=== PATIENT | female | born 1995 | race Two or more races ===

== ENCOUNTER 2016-04-29 15:07 | Emergency (ER) | payer OTHER ==
[2016-04-29 15:17] VITALS: BP 101/62; PULSE 74; TEMP 98.2; BMI 18.1
== END 2016-04-29 15:55 | disposition left against medical advice (07) ==
LOC: JER 15:07
DX: Z53.21 Procedure and treatment not carried out due to patient leaving prior to being seen by health care provider (principal)
CPT/HCPCS: 99281-25

== ENCOUNTER 2017-06-27 07:30 | Inpatient (IN) | payer OTHER ==
[2017-06-27] MEDS ORDERED: PROMETHAZINE HCL 25 MG/1 ML VIAL IVPUSH ONE (07:53)
[2017-06-27] MEDS ORDERED: BUTORPHANOL TARTRATE 1 MG/ML VIAL IVPB ONE (07:53)
[2017-06-27] MEDS ORDERED: DINOPROSTONE 10 MG VAGINAL SUPPOSITORY VG ONE (08:06)
--- NOTE | 2017-06-27 08:14 | HP ---
Past Medical History - Primary Care Physician PCP:: Analilia Kulkarni - Admission Chief Complaint: 22 yrs , 39 weeks diagnosed gestational thrombovytopenia is admitted for induction of labor History of Present Illness: pnc at [address] [place] [address] . wt gain 31 lbs panel 12/23/16 ; O pos , Hbsag neg Hiv nr, Rpr nr, Rubella immune , Sickle neg,Pap NILM gc/ct neg 03/29/17 Quantiferon neg, 1 Hr Gtt 102 , Rpr nr, plt 166. 06/13/17 Gbs neg, gc/ct neg, Hiv neg Plt 85 06/15/17 Plt 89 h/h 12.2/35.4 06/20/17 Plt 76, ast 21, ALt 29 06/21/17 sono 36.5 weeks , Rita 12.5, efw 6'9" ( 36 %tile) ,BpP8/8, NST -2 cat-1 doppler flow at [facility] MCA wnl, recommends delivery 39 weeks 06/23/17 repeat BPP 8/8, Nst cat-1 Bpp 8/8, NST cat-1 , RITA 10.2 Plt 71, h/h 12.2/31.5 , AST 21, ALt 21 GGT 29, uric aci 6.2, u/a protein neg previously anatomy sono & growth sono wnl, Nt screen was not done , Quad screen neg 01/18/2017 16.1 wks ,EDC 07/04/17 02/06/17 20.1 weeks edc 07/04/17 normal anatomy History Source: Patient, Medical Record Limitations to Obtaining History: No Limitations - Past Medical History 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 No: Gastritis, GERD Hepatobiliary: No: Cholelithiasis, Hepatitis B Renal/: No: UTI ...: 1 ...Para: 0 ...LMP: 10/23/16 ...EDC by Dates: 07/30/17 (Mistaken dates ) ...EDC by Sono: 07/04/17 (39 weeks by sono .) Heme/Onc: Yes: Thrombocytopenia (gestational diagnised at 36 weeks). No: Anemia Infectious Disease: No: AIDS, HIV, STD's, Tuberculosis Psych: Yes: Other (no h/o mental disorders) Endocrine: No: Diabetes Mellitus, Hyperthyroidism, Hypothyroidism - Past Surgical History Past Surgical History: Yes: None Hx Myomectomy: No Hx Transabdominal Cerclage: No - Smoking History Smoking history: Never smoked Have you smoked in the past 12 months: No - Alcohol/Substance Use Hx Alcohol Use: No History of Substance Use: reports: None Home Medications - Allergies Allergies/Adverse Reactions: Allergies Allergy/AdvReac Type Severity Reaction Status Date / Time No Known Allergies Allergy Verified 06/27/17 09:19 - Home Medications Home Medications: Ambulatory Orders Vitamins (Sjr) - 1 tab PO DAILY 06/23/17 Physical Exam - Maternity Vital Signs: Selected Entries 06/27/17 08:00 Temperature 98.8 F Pulse Rate 55 L Respiratory 18 Rate Blood Pressure 110/71 Weight 130 lb Constitutional: Yes: Well Nourished, No Distress Eyes: Yes: WNL HENT: Yes: WNL Neck: Yes: WNL Cardiovascular: Yes: WNL Lungs: Clear to auscultation Breast(s): Yes: WNL. No: Mass - Abdominal Exam/OB Fundal Height: 38 Number of Fetuses: Single Presentation: Vertex Contractions: Yes Regularity: Irregular Intensity: Unaware Monitor Mode: External Heart Rate (range): 130 Heart Rate Location: [facility] Category: I Accelerations: Uniform Decelerations: None - Vaginal Exam/OB Vaginal Bleediing: No Speculum Exam: No Dilatation (cm): ft Effacement (%): 60 Amniotic Membrane Status: Intact Presentation: Vertex/Position (exam at 8.00 AM) Station: -2 - Physical Exam Musculoskeletal: Yes: WNL Extremities: Yes: WNL. No: Calf Tenderness Edema: Yes Edema: LLE: 1+, RLE: 1+ Integumentary: Yes: WNL Deep Tendon Reflex Grade: Normal +2 ...Motor Strength: WNL Psychiatric: Yes: WNL - Labs Lab Results: Laboratory Tests 06/27/17 06/27/17 06/27/17 09:05 09:05 09:05 WBC 7.6 Hgb 12.3 Hct 34.9 Plt Count 69 L Neutrophils % 64.6 Lymphocytes % 25.5 Monocytes % 7.2 Eosinophils % 2.1 Basophils % 0.6 Platelet Comment Rare giant plts PT with INR 9.50 L INR 0.84 L PTT (Actin FS) 28.9 Sodium Potassium Chloride Carbon Dioxide BUN Creatinine Random Glucose Uric Acid Calcium AST ALT Total Protein Urine Protein RPR Titer Blood Type O POSITIVE Antibody Screen Negative 06/27/17 06/27/17 06/27/17 09:05 09:05 10:15 WBC Hgb Hct Plt Count Neutrophils % Lymphocytes % Monocytes % Eosinophils % Basophils % Platelet Comment PT with INR INR PTT (Actin FS) Sodium 140 Potassium 4.0 Chloride 109 H Carbon Dioxide 23 BUN 8 Creatinine 0.6 Random Glucose 77 Uric Acid 5.7 Calcium 8.6 AST 18 ALT 16 Total Protein 6.4 Urine Protein Negative RPR Titer Nonreactive Blood Type Antibody Screen Hemorrhage Risk Assessment - Risk Factors High Risk Factors: Yes: Platelets less than 70,000 Risk Score: 2 Risk Level: High Risk Problem List - Problems (1) 39 weeks gestation of Code(s): Z3A.39 - 39 WEEKS GESTATION OF (2) Gestational thrombocytopenia Code(s): O99.119 - H DIS OF BLD/BLD-FORM ORG/IMMUN MECHNSM COMP PREG,UNSP TRI ; D69.6 - THROMBOCYTOPENIA, UNSPECIFIED Qualifiers: Trimester: third trimester Qualified Code(s): O99.113 - Other diseases of the blood and blood-forming organs and certain disorders involving the immune mechanism complicating , third trimester; D69.6 - Thrombocytopenia, unspecified; D69.6 - Thrombocytopenia, unspecified; D69.6 - Thrombocytopenia, unspecified (3) Elective induction of labor planned Code(s): [id number] - Assessment/Plan 22 yrs h/f 39 weeks iup, gestational thrmbocytopenia for induction of labor . Plan cervidil induction : cervidil inserted at 8.30 AM Trial of vaginal delivery stadol 2 mg+ phenrgan 25 mg iv prn for pain Plt 10 units on hold
[2017-06-27 08:58] VITALS: BMI 23.8
[2017-06-27 09:31] LABS: BASO % 0.6 % (0-2.0); EOS % 2.1 % (0-4.5); HEMATOCRIT 34.9 % (32.4-45.2); HEMOGLOBIN 12.3 GM/dL (10.7-15.3); LYMPH % 25.5 % (8-40); MCH 33.5 pg (25.7-33.7); MCHC 35.2 g/dl (32.0-36.0); MEAN CELL VOLUME 95.4 fl (80-96); MEAN PLT VOLUME 11.9 fl (7.5-11.1); MONO % 7.2 % (3.8-10.2); NEUT % 64.6 % (42.8-82.8); PLATELET COUNT 69 K/MM3 (134-434); RBC 3.66 M/mm3 (3.60-5.2); RDW 12.8 % (11.6-15.6); WHITE BLOOD COUNT 7.6 K/mm3 (4.0-10.0)
[2017-06-27 09:40] LABS: INR 0.84 (0.82-1.09); PROTHROMBIN TIME (PATIENT) 9.5 SEC (9.98-11.88)
[2017-06-27 09:43] LABS: ACTIVATED PTT 28.9 SECONDS (26.9-34.4)
[2017-06-27 10:00] LABS: ALBUMIN 2.7 g/dl (3.4-5.0); ALK PHOS 194 U/L (45-117); ANION GAP 8 (8-16); BLOOD UREA NITROGEN 8 mg/dL (7-18); CALCIUM 8.6 mg/dL (8.5-10.1); CHLORIDE 109 mmol/L (98-107); CO2 23 mmol/L (21-32); CREATININE 0.6 mg/dL (0.55-1.02); GLUCOSE,RANDOM 77 mg/dL (74-106); SGOT/AST 18 U/L (15-37); SGPT/ALT 16 U/L (12-78); SODIUM 140 mmol/L (136-145); TOT PROT 6.4 g/dl (6.4-8.2); URIC ACID 5.7 mg/dL (2.6-7.2)
[2017-06-27 10:03] LABS: BILIRUBIN,TOTAL < 0.1 mg/dL (0.2-1.0)
[2017-06-27 11:09] LABS: URINE APPEARANCE CLEAR; URINE BILIRUBIN NEGATIVE (<2.0 mg/dL); URINE COLOR STRAW; URINE GLUCOSE (UA) NEGATIVE (NEGATIVE); URINE KETONE NEGATIVE (NEGATIVE); URINE LEUK ESTERASE NEGATIVE (NEGATIVE); URINE NITRITE NEGATIVE (NEGATIVE); URINE PROTEIN NEGATIVE (NEGATIVE); URINE UROBILINOGEN NEGATIVE mg/dL (0.2-1.0)
[2017-06-27] MEDS ORDERED: SODIUM PHOSPHATE/NA BIPHOS 133 ML ENEMA PR ONE (20:00)
[2017-06-27] MEDS ORDERED: OXYTOCIN 30 UNITS in 0.9% NS 30 UNIT/500 ML INFUS.BAG IVPB SCH (22:00)
[2017-06-27] MEDS: DEXTROSE 5%-LACTATED RINGERS 1,000 ML IV SCH (23:40)
[2017-06-28] MEDS ORDERED: PROMETHAZINE HCL 25 MG/1 ML VIAL ONE ×3 (06:31→17:37)
[2017-06-28] MEDS ORDERED: BUTORPHANOL TARTRATE 1 MG/ML VIAL ONE ×4 (06:31→17:36)
--- NOTE | 2017-06-28 06:39 | PN ---
Progress Note (short form) - Note Progress Note: 22 yrs , s/p 12 hrs of cervidl. Cervidil removed at 8.30 PM 06/27/17 Pitocin Induction since 12.00 midnight , currently 7ml/hr UC q 2-4 min irregular mod to strong FHR 120 cat-1 pt very uncomfortable , & anxious Pelvic : 1 cm/70 %, vx -2/-1 station, pelvis adequate Selected Entries 06/28/17 06:00 Temperature 97.9 F Pulse Rate 49 L Blood Pressure 114/66 IMP : 39 .1 weeks,gestational thrombocytopenia induction in progress, latent phase labor on pitocin ' Plan Stadol + phenrgan for labor analgesia given at 6.[address] Pitocin, Ct trial of labor Laboratory Tests 06/28/17 07:40 WBC 10.3 H D RBC 3.53 L Hgb 11.8 Hct 33.8 Plt Count 69 L Neutrophils % 77.3 Lymphocytes % 15.1 D , repeat cbc today stable plt count Problem List - Problems (1) 39 weeks gestation of Code(s): Z3A.39 - 39 WEEKS GESTATION OF (2) Gestational thrombocytopenia Code(s): O99.119 - OTH DIS OF BLD/BLD-FORM ORG/IMMUN MECHNSM COMP PREG,UNSP TRI ; D69.6 - THROMBOCYTOPENIA, UNSPECIFIED Qualifiers: Trimester: third trimester Qualified Code(s): O99.113 - Other diseases of the blood and blood-forming organs and certain disorders involving the immune mechanism complicating , third trimester; D69.6 - Thrombocytopenia, unspecified; D69.6 - Thrombocytopenia, unspecified; D69.6 - Thrombocytopenia, unspecified (3) Elective induction of labor planned Code(s): [id number] -
[2017-06-28 08:13] LABS: BASO % 0.6 % (0-2.0); EOS % 0.9 % (0-4.5); HEMATOCRIT 33.8 % (32.4-45.2); HEMOGLOBIN 11.8 GM/dL (10.7-15.3); LYMPH % 15.1 % (8-40); MCH 33.5 pg (25.7-33.7); MEAN CELL VOLUME 95.6 fl (80-96); MEAN PLT VOLUME 12.4 fl (7.5-11.1); MONO % 6.1 % (3.8-10.2); NEUT % 77.3 % (42.8-82.8); PLATELET COUNT 69 K/MM3 (134-434); RBC 3.53 M/mm3 (3.60-5.2); RDW 12.9 % (11.6-15.6); WHITE BLOOD COUNT 10.3 K/mm3 (4.0-10.0)
[2017-06-28] MEDS: DEXTROSE 5%-LACTATED RINGERS 1,000 ML IV SCH ×2 (09:00→18:00)
--- NOTE | 2017-06-28 11:28 | PN ---
Progress Note (short form) - Note Progress Note: 10.30 AM : pelvic 1-2 cm/80 %/vx /-2/-1 station FHR 125/130 cat-1 , UC 1-3-4 min , Pitocin 9 ml/hr Selected Entries 06/28/17 10:00 Temperature 98.2 F Pulse Rate 69 Blood Pressure 128/[address] trial of labor 14.20 hr 2 cm/90%/Vx/-1/OH /Pitocin FHR 125-135 cat-1 . UC 2-3 min irregular, dysfuctional .Pitocin 9ml/hr Selected Entries 06/28/17 13:00 Pulse Rate 61 Blood Pressure 126/84 Blood Pressure [address] trial of labor 15.55 hr stadol 1 mg + phenrgan 25 mg IV stat given 16.35 hr SROM clear 16.45 hr cx : 2-3 cm/90 % edematous cx /vx -1 to 0 statiion /mr fhr 130-140 , one time variable cat-2/ uc 2-5 min/pit 9 ml/ hr Selected Entries 06/28/17 15:55 Temperature 98.2 F Pulse Rate 71 Blood Pressure 145/78 17.40hr Stadol 1mg + phenrgan 25 mg Iv stat 19.10 hr 4cm/90%/vx 0 /mr fhr 130 , cat-1, , when pt sits ,fhr is seen deceling down to 80 bpm unable to determine if it is true decel or not uc q 2 min . Pit 10 ml/hr Selected Entries 06/28/17 06/28/17 18:00 18:56 Temperature 98.2 F Pulse Rate 72 87 Blood Pressure 146/79 Blood Pressure 99 Mean 20.30 :7-8 cm/90%/vx /+1 caput /mr fhr 135, cat-1, UC 2-3 , pit 11 ml/hr 21.30 hr 9cm/100%//vx+2 caput fhr 140 cat-1 , UC 2-3 min , Pit 11/ml/hr Selected Entries 06/28/17 21:00 Pulse Rate 69 Blood Pressure 136/85 4/12/18 : 00.00 hr fully dilated . pt pushing Selected Entries 06/28/17 22:00 Temperature 98.7 F Pulse Rate 80 Blood Pressure 130/85 Problem List - Problems (1) 39 weeks gestation of Code(s): Z3A.39 - 39 WEEKS GESTATION OF (2) Gestational thrombocytopenia Code(s): O99.119 - OTH DIS OF BLD/BLD-FORM ORG/IMMUN MECHNSM COMP PREG,UNSP TRI ; D69.6 - THROMBOCYTOPENIA, UNSPECIFIED Qualifiers: Trimester: third trimester Qualified Code(s): O99.113 - Other diseases of the blood and blood-forming organs and certain disorders involving the immune mechanism complicating , third trimester; D69.6 - Thrombocytopenia, unspecified; D69.6 - Thrombocytopenia, unspecified; D69.6 - Thrombocytopenia, unspecified (3) Elective induction of labor planned Code(s): [id number] -
[2017-06-28] MEDS ORDERED: PROMETHAZINE HCL 25 MG/1 ML VIAL IVPB ONE ×2 (15:34→17:50)
[2017-06-28] MEDS ORDERED: BUTORPHANOL TARTRATE 1 MG/ML VIAL IVPUSH ONE (15:45)
[2017-06-28] MEDS ORDERED: BUTORPHANOL TARTRATE 1 MG/ML VIAL IVPB ONE (17:50)
[2017-06-29] MEDS ORDERED: OXYTOCIN 20 UNITS in 0.9% NS 20 UNIT/1,000 ML INFUS.BAG IV ONE ×2 (01:42→03:44)
[2017-06-29 01:58] LABS: VENOUS PC02 46.2 mmHg (38-52); VENOUS PH 7.28 (7.32-7.42); VENOUS PO2 22.9 mmHg (28-48)
[2017-06-29] MEDS ORDERED: BENZOCAINE 28 GM HEMORRHOIDAL OINTMENT TP PRN (02:21)
[2017-06-29] MEDS ORDERED: METHYLERGONOVINE MALEATE 0.2 MG/1 ML AMP IM PRN (02:21)
[2017-06-29] MEDS ORDERED: BISACODYL 10 MG SUPP.RECT RC PRN (02:21)
[2017-06-29] MEDS ORDERED: WITCH HAZEL 50% (TUCKS) 40 PAD/JAR PAD TP PRN (02:21)
[2017-06-29] MEDS ORDERED: BENZOCAINE 20% 57 GM BOTTLE TP PRN (02:21)
[2017-06-29] MEDS ORDERED: IBUPROFEN 600 MG TABLET (FP) PO PRN (02:21)
[2017-06-29] MEDS ORDERED: OXYTOCIN 20 UNITS in 0.9% NS 20 UNIT/1,000 ML INFUS.BAG IV SCH (02:30)
--- NOTE | 2017-06-29 02:38 | PN ---
Delivery - Delivery Vaginal Delivery: No Problems, Spontaneous (baby was delievered vx presentation , [place] position, immediate oral & nasal suction was done .shoulder delievered without problem .) Type of Anesthesia: Local Episiotomy/Laceration: Midline (episiotomy was sutured in layers with chr catgut #2/0 under local anesthesia .. 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 Cervidil induction started on 06/27/17 Pitocin Induction on 06/28/17 Intrapartum for labor analgesia stadol & phenrgan was given repeated 3 times . Intrapartum protracted active phase of labor was noted After full Dilatation , at 00.15 Hr platelet transfusion 1 bag (10 units ) were given . after delivery of placenta 20 IU pitocin & prpphylactic IM Methergine 0.2 mg was given . v/s stable
[2017-06-29] MEDS ORDERED: FERROUS SO4 325 MG TABLET (FP) PO SCH (08:00)
[2017-06-29] MEDS: oxyCODONE HCL 5 MG TABLET PO PRN ×2 (09:11→20:38)
[2017-06-29] MEDS: ACETAMINOPHEN 325 MG TABLET (FP) PO PRN ×2 (09:12→20:39)
[2017-06-29] MEDS ORDERED: PRENATAL VITAMINS W/ FOLIC ACID TABLET (FP) PO SCH (10:00)
[2017-06-30 05:38] LABS: BASO % 0.3 % (0-2.0); EOS % 1.3 % (0-4.5); HEMATOCRIT 27.7 % (32.4-45.2); HEMOGLOBIN 9.2 GM/dL (10.7-15.3); LYMPH % 14.8 % (8-40); MCH 32.3 pg (25.7-33.7); MCHC 33.4 g/dl (32.0-36.0); MEAN CELL VOLUME 96.8 fl (80-96); MONO % 5.9 % (3.8-10.2); NEUT % 77.7 % (42.8-82.8); PLATELET COUNT 75 K/MM3 (134-434); RBC 2.86 M/mm3 (3.60-5.2); WHITE BLOOD COUNT 15.1 K/mm3 (4.0-10.0)
[2017-06-30 05:42] LABS: ALBUMIN 1.9 g/dl (3.4-5.0); ALK PHOS 134 U/L (45-117); ANION GAP 8 (8-16); BLOOD UREA NITROGEN 11 mg/dL (7-18); CALCIUM 8.2 mg/dL (8.5-10.1); CHLORIDE 110 mmol/L (98-107); CO2 24 mmol/L (21-32); CREATININE 0.7 mg/dL (0.55-1.02); GLUCOSE,RANDOM 90 mg/dL (74-106); POTASSIUM 3.9 mmol/L (3.5-5.1); SGOT/AST 38 U/L (15-37); SGPT/ALT 20 U/L (12-78); SODIUM 142 mmol/L (136-145); TOT PROT 4.8 g/dl (6.4-8.2)
[2017-06-30 05:49] LABS: BILIRUBIN,TOTAL < 0.1 mg/dL (0.2-1.0)
--- NOTE | 2017-06-30 07:45 | PN ---
Progress Note (short form) - Note Progress Note: s/p vaginal delivery, has c/o of dizziness and chest pain early this mornning, has no chest pain, no dizziness ,no dyspnia, no excess vaginal bleeding CBC, BMP 06/30/17 05:10 06/30/17 05:10 Last Vital Signs Temp Pulse Resp BP Pulse Ox 98.9 F 62 20 129/81 06/29/17 21:00 06/30/17 04:25 06/30/17 04:25 06/30/17 04:25 uterus firm, non tender . lochia mild no calf tenderness impression ITP, platletes improved , no active vaginal bleeding chest pain, dizziness resolved , possible postural hypotension plan medical evaluation, EKG
--- NOTE | 2017-06-30 08:54 | CONSULT ---
Consultation: REQUESTING PROVIDER: Dr. Patiño CONSULT REQUEST: We have been asked to medically evaluate this patient for chest pain. HISTORY OF PRESENT ILLNESS: Patient is a 22 year old female with no significant past medical history. Family history obtained. Patient is who was diagnosed with gestational thrombocytopenia and was induced. Patient reported chest pain that began at 0400 today, chest pain is described as chest pressure 8/9 that worsens when she takes in a deep breath and does not radiate. Some dizziness with ambulation reported. Chest pressure reproducible on palpation of the chest. She is noted to have petechia on her face, both eyelids and anterior chest. She denies any calf pain, no active vaginal bleeding, no dizziness when laying in the bed, no gum bleeding. PAST MEDICAL HISTORY: none reported PAST SURGICAL HISTORY: n/a Social History: Smoking: none Alcohol: denies Drugs: denies Family History: Mother: in her 40s, history of anemia Father: late 50s, hx of stroke Brother 1, no medical issues Sister 1, no medical issues REVIEW OF SYSTEMS: CONSTITUTIONAL: Absent: fever, chills, diaphoresis, generalized weakness, malaise, loss of appetite, weight change HEENT: Absent: rhinorrhea, nasal congestion, throat pain, throat swelling, difficulty swallowing, mouth swelling, ear pain, eye pain, visual changes CARDIOVASCULAR: Absent: syncope, palpitations, irregular heart rate, peripheral edema RESPIRATORY: Absent: cough, wheezing, stridor, hemoptysis GASTROINTESTINAL: Absent: abdominal pain, abdominal distension, nausea, vomiting, diarrhea, constipation, melena, hematochezia GENITOURINARY: Absent: dysuria, frequency, urgency, hesitancy, hematuria, flank pain, genital pain MUSCULOSKELETAL: Absent: myalgia, arthralgia, joint swelling, back pain, neck pain SKIN: Absent: pallor HEMATOLOGIC/IMMUNOLOGIC: Absent: frequent infections ENDOCRINE: Absent: unexplained weight gain, unexplained weight loss, heat intolerance, cold intolerance NEUROLOGIC: Absent: headache, focal weakness or paresthesias, unsteady gait, seizure, mental status changes, bladder or bowel incontinence PSYCHIATRIC: Absent: anxiety, depression, suicidal or homicidal ideation, hallucinations. PHYSICAL EXAMINATION Vital Signs - 24 hr 06/29/17 06/29/17 06/29/17 09:06 09:58 13:26 Temperature 99.1 F 98.2 F 98.1 F Pulse Rate 62 60 73 Respiratory 20 16 20 Rate Blood Pressure 126/56 118/68 113/64 06/29/17 06/29/17 06/30/17 17:32 21:00 04:08 Temperature 98.1 F 98.9 F Pulse Rate 73 74 62 Respiratory 20 20 22 Rate Blood Pressure 122/71 134/69 124/81 06/30/17 04:25 Temperature Pulse Rate 62 Respiratory 20 Rate Blood Pressure 129/81 GENERAL: Awake, alert, and fully oriented, in no acute distress. HEAD: Normal with no signs of trauma, petechia that covers her entire face, both eyelids are reddened, no visual defect, red eye sclera reddended EYES: Pupils equal, round and reactive to light, extraocular movements intact, sclera anicteric, conjunctiva clear. No lid lag. EARS, NOSE, THROAT: Ears normal, nares patent, oropharynx clear without exudates. Moist mucous membranes. NECK: Normal range of motion, supple without lymphadenopathy, JVD, or masses. LUNGS: Breath sounds equal, clear to auscultation bilaterally. No wheezes, and no crackles. No accessory muscle use. HEART: Regular rate and rhythm, EKG shows SB @ 51 ABDOMEN: Soft, nontender, not distended, normoactive bowel sounds MUSCULOSKELETAL: Normal range of motion at all joints. No bony deformities or tenderness. No CVA tenderness. UPPER EXTREMITIES: No peripheral edema. LOWER EXTREMITIES: No peripheral edema. NEUROLOGICAL: Normal speech. Normal gait. PSYCHIATRIC: Cooperative. Good eye contact. Appropriate mood and affect. SKIN: petechie rash covers entire face, and anterior part of her chest. Laboratory Results - last 24 hr 06/30/17 06/30/17 05:10 05:10 WBC 15.1 H D RBC 2.86 L Hgb 9.2 L D Hct 27.7 L D MCV 96.8 H MCH 32.3 MCHC 33.4 RDW 13.0 Plt Count 75 L MPV 12.0 H Neutrophils % 77.7 Lymphocytes % 14.8 Monocytes % 5.9 Eosinophils % 1.3 Basophils % 0.3 Sodium 142 Potassium 3.9 Chloride 110 H Carbon Dioxide 24 Anion Gap 8 BUN 11 Creatinine 0.7 Creat Clearance w eGFR > 60 Random Glucose 90 Calcium 8.2 L Total Bilirubin < 0.1 L AST 38 H ALT 20 Alkaline Phosphatase 134 H Total Protein 4.8 L Albumin 1.9 L ASSESSMENT/PLAN: Patient is a 22 year old female with no significant past medical history. Family history obtained. Patient is who was diagnosed with gestational thrombocytopenia and was induced. Patient reported chest pain that began at 0400 today, chest pain is described as chest pressure 8/9 that worsens when she takes in a deep breath and does not radiate. Some dizziness with ambulation reported. Chest pressure reproducible on palpation of the chest. She is noted to have petechia on her face, both eyelids and anterior chest. She denies any calf pain, no active vaginal bleeding, no dizziness when laying in the bed. She has been infused platelets on this admission. Card: Chest pain, acute Dyspnea with exertion EKG shows SB 51 HR Chest pain reproducible on palpation of midsternal chest Trend trops Repeat EKG if symptoms persist Monitor vitals, labs Orthostatics q8 Fall precautions Bleeding precautions Chest xray to eval shortness of breath, although not wheezing Cardiology consult considered Pulm: Shortness of breath Lungs clear to auscultation, no wheezing Stable oxygen levels on 2 liters Chest xray ordered Wean off oxygen as tolerated Incentive spirometer Heme: Leukocytosis, likely reactive Will trend, no signs of infection otherwise UA/UC/BC ordered Thrombocytopenia in (gestational), platelets 69>75 Bleeding risk, monitor for signs of bleed Would monitor her BP q 4 hours Monitor platelets for recovery CBC q4 x 3 today F.E.N. Fluids: tolerating PO Electrolytes: monitor bmp Nutrition: regular diet Prophy: DVT: TEDs, anticoag contraindicated GI: deferred Dispo: We will continue to follow the patient. Thank you for this consultative opportunity. Visit type - Emergency Visit Emergency Visit: Yes ED Registration Date: 06/27/17 Care time: The patient presented to the Emergency Department on the above date and was hospitalized for further evaluation of their emergent condition. - New Patient This patient is new to me today: Yes Date on this admission: 06/30/17 - Critical Care Critical Care patient: No
--- NOTE | 2017-06-30 09:18 | EKG ---
Test Reason : Blood Pressure : / mmHG Vent. Rate : 051 BPM Atrial Rate : 051 BPM P-R Int : 134 ms QRS Dur : 090 ms QT Int : 406 ms P-R-T Axes : 036 063 048 degrees QTc Int : 374 ms SINUS BRADYCARDIA OTHERWISE NORMAL ECG NO PREVIOUS ECGS AVAILABLE Confirmed by HECTOR MARTINEZ MD ([id number]) on 06/30/2017 9:18:40 AM Referred By: Confirmed By:HECTOR MARTINEZ MD
[2017-06-30] MEDS ORDERED: WITCH HAZEL 50% (TUCKS) 40 PAD/JAR PAD TP PRN (10:41)
[2017-06-30] MEDS ORDERED: METHYLERGONOVINE MALEATE 0.2 MG/1 ML AMP IM PRN (10:41)
[2017-06-30] MEDS ORDERED: BENZOCAINE 28 GM HEMORRHOIDAL OINTMENT TP PRN (10:41)
[2017-06-30] MEDS ORDERED: BISACODYL 10 MG SUPP.RECT RC PRN (10:41)
[2017-06-30] MEDS ORDERED: BENZOCAINE 20% 57 GM BOTTLE TP PRN (10:41)
[2017-06-30 11:43] LABS: URINE APPEARANCE CLEAR; URINE BILIRUBIN NEGATIVE (<2.0 mg/dL); URINE COLOR COLORLESS; URINE GLUCOSE (UA) NEGATIVE (NEGATIVE); URINE KETONE NEGATIVE (NEGATIVE); URINE LEUK ESTERASE TRACE (NEGATIVE); URINE NITRITE NEGATIVE (NEGATIVE); URINE PROTEIN NEGATIVE (NEGATIVE); URINE UROBILINOGEN NEGATIVE mg/dL (0.2-1.0)
[2017-06-30 11:56] LABS: EPI CELLS RARE /HPF (FEW)
[2017-06-30] MEDS: TETRAHYDROZOLINE HCL EYE DROPS OU SCH ×4 (12:25→21:22)
[2017-06-30 12:33] LABS: BASO % 0.2 % (0-2.0); EOS % 0.8 % (0-4.5); HEMATOCRIT 26.2 % (32.4-45.2); LYMPH % 13.2 % (8-40); MCH 32.9 pg (25.7-33.7); MCHC 34.3 g/dl (32.0-36.0); MEAN PLT VOLUME 11.3 fl (7.5-11.1); MONO % 5.1 % (3.8-10.2); NEUT % 80.7 % (42.8-82.8); PLATELET COUNT 85 K/MM3 (134-434); RBC 2.73 M/mm3 (3.60-5.2); WHITE BLOOD COUNT 17.3 K/mm3 (4.0-10.0)
[2017-06-30] MEDS: ACETAMINOPHEN 325 MG TABLET (FP) PO PRN ×2 (13:30→23:12)
[2017-06-30] MEDS: FERROUS SO4 325 MG TABLET (FP) PO SCH (17:04)
[2017-06-30 18:00] LABS: BASO % 0.4 % (0-2.0); EOS % 0.9 % (0-4.5); HEMATOCRIT 26.7 % (32.4-45.2); HEMOGLOBIN 9.3 GM/dL (10.7-15.3); LYMPH % 15.5 % (8-40); MCH 33.6 pg (25.7-33.7); MCHC 34.9 g/dl (32.0-36.0); MEAN CELL VOLUME 96.2 fl (80-96); MEAN PLT VOLUME 11.9 fl (7.5-11.1); MONO % 5.6 % (3.8-10.2); NEUT % 77.6 % (42.8-82.8); PLATELET COUNT 106 K/MM3 (134-434); RBC 2.78 M/mm3 (3.60-5.2); RDW 13.2 % (11.6-15.6); WHITE BLOOD COUNT 18.5 K/mm3 (4.0-10.0)
[2017-06-30] MEDS ORDERED: SENNOSIDES/DOCUSATE COMBO (SENNA PLUS) TABLET (UD) PO PRN (22:00)
--- NOTE | 2017-07-01 08:02 | DS ---
Physical Exam-PERSONAL LINES APPRAISER Vital Signs: Vital Signs Temperature 98.2 F 06/30/17 22:00 Pulse Rate 63 06/30/17 22:00 Respiratory Rate 20 06/30/17 22:00 Blood Pressure 107/58 06/30/17 22:00 O2 Sat by Pulse Oximetry (%) 100 06/30/17 09:00 Constitutional: Yes: Well Nourished Eyes: Yes: Other (Conjuctiva red) HENT: Yes: Atraumatic Neck: Yes: Supple Cardiovascular: Yes: Regular Rate and Rhythm Respiratory: Yes: Regular Gastrointestinal: Yes: Normal Bowel Sounds External Genitalia: Yes: Normal Vaginal Exam: Yes: Normal Cervix: Yes: Normal Uterus: Yes: Firm ....Post : Yes: Uterus firm, Moderate lochia serosa Breast(s): Yes: WNL Musculoskeletal: Yes: WNL Extremities: Yes: WNL Neurological: Yes: Alert, Oriented ...Motor Strength: WNL Psychiatric: Yes: Alert, Oriented Labs: CBC, BMP 06/30/17 05:10 Delivery - Delivery Vaginal Delivery: No Problems, Spontaneous (baby was delievered vx presentation , [place] position, immediate oral & nasal suction was done .shoulder delievered without problem .) Type of Anesthesia: Local Episiotomy/Laceration: Midline (episiotomy was sutured in layers with chr catgut #2/0 under local anesthesia .. 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 Present: Yes Name: Barry Torres Infant Gender: Male Weight: 6 lb 14 oz Position: Left, OA Total Hours ROM (Hrs/Mins): 9hrs.07min - 1 Minute Total Score: 9 5 Minutes Total Score: 9 - Feeding Plan Initial Plan: Elected not to breastfeed exclusively throughout hospitalization Discharge Summary Reason For Visit: INDUCTION Current Active Problems 39 weeks gestation of (Acute) Elective induction of labor planned (Acute) Gestational thrombocytopenia (Acute) Normal spontaneous vaginal delivery (Acute) Procedures: Principal: Normal vaginal delivery Hospital Course: Patient is status post normal vaginal delivery; she was consulted by [facility] due to gestational thrombocytopenia. Condition: Stable - Instructions Diet, Activity, Other Instructions: Post Instructions DIET: Continue good diet high in protein, calcium, and iron rich foods. Drink at least eight (8) glasses of water daily in addition to other fluids. ___ Regular diet MEDICATIONS: Continue vitamins and iron as previously directed. Motrin and Tylenol may be taken for minor discomfort. ACTIVITY: Mild to moderate exercise may be started in two (2) weeks. Take frequent rest periods. Resume normal activity after six (6) week check up. WOUND CARE OF OPERATIVE SITE: Continue use of perineal bottle until vaginal discharge stops. Keep area clean. Shower daily. Keep abdominal wound dry. Report any drainage or redness to physician. Tub baths, tampons and douches are not permitted for [address] Breast feeding & or Bottle feeding BREAST CARE: (For those that are not breast feeding): If engorgement occurs: Wear tight fitting bra. Take Tylenol or Motrin for pain. Apply cold packs (ice in bags to each breast ) FAMILY PLANNING: There are many control alternatives to pursue and they should be discussed at your first office visit. You may resume sexual activity after your six (6) week check up. (Remember, breast feeding is not a contraceptive) NEXT PHYSICIAN APPOINTMENT: Be certain to call for a six (6) week appointment, unless otherwise directed. Call Clinic or got to Emergency Dept if you have any of the following: Heavy vaginal bleeding Painful urination Leg pain Unusual odor noted to vaginal bleeding High fever Red streaking noted on breast Referrals: Analilia Kulkarni MD [Staff Physician] - Disposition: HOME - Home Medications Comprehensive Discharge Medication List: Ambulatory Orders Vitamins (Sjr) - 1 tab PO DAILY 06/23/17 Acetaminophen [Tylenol .Regular Strength -] 650 mg PO Q3H PRN tablet 06/29/17 Benzocaine [Americaine 20% [place] -] 1 spray TP PRN PRN bottle 06/29/17 Ferrous Sulfate [Feosol] 325 mg PO DAILY@0800 #30 tab 06/29/17 Ibuprofen [Motrin -] 200 mg PO Q4H PRN tablet 06/29/17 Vitamins (Sjr) - 1 tab PO DAILY #30 tablet 06/29/17 Witch Karlee 50% (Tucks) [Tucks Pads -] 1 pad TP PRN PRN pad 06/29/17
[2017-07-01 08:10] LABS: BASO % 0.3 % (0-2.0); EOS % 2.2 % (0-4.5); HEMATOCRIT 26.7 % (32.4-45.2); HEMOGLOBIN 9.2 GM/dL (10.7-15.3); LYMPH % 17.4 % (8-40); MCH 33.2 pg (25.7-33.7); MCHC 34.4 g/dl (32.0-36.0); MEAN CELL VOLUME 96.5 fl (80-96); MEAN PLT VOLUME 10.6 fl (7.5-11.1); MONO % 4.4 % (3.8-10.2); NEUT % 75.7 % (42.8-82.8); PLATELET COUNT 97 K/MM3 (134-434); RBC 2.76 M/mm3 (3.60-5.2); WHITE BLOOD COUNT 15.4 K/mm3 (4.0-10.0)
[2017-07-01] MEDS: FERROUS SO4 325 MG TABLET (FP) PO SCH (08:41)
[2017-07-01] MEDS: TETRAHYDROZOLINE HCL EYE DROPS OU SCH (09:26)
[2017-07-01 09:46] VITALS: BP 109/66; PULSE 54; TEMP 97.8
[2017-07-01] MEDS ORDERED: PRENATAL VITAMINS W/ FOLIC ACID TABLET (FP) PO SCH (10:00)
--- NOTE | 2017-07-01 11:51 | PN ---
Progress Note (short form) - Note Progress Note: Subjective: The patient was seen and examined at the bedside, she has no complaints of chest pain at this time. Current Medications Generic Name Dose Route Start Last Admin Trade Name Freq PRN Reason Stop Dose Admin Acetaminophen 650 mg 06/30/17 10:41 06/30/17 23:12 Tylenol - PO 650 mg Q3H PRN Administration PAIN LEVEL 4 - 6 Benzocaine 1 spray 06/30/17 10:41 [place]aine 20% [place] - TP PRN PRN PAIN Benzocaine 1 applic 06/30/17 10:41 Americaine Ointment - TP PRN PRN PAIN Bisacodyl 10 mg 06/30/17 10:41 Dulcolax Suppository - RC PRN PRN CONSTIPATION Ferrous Sulfate 325 mg 06/30/17 17:30 07/01/17 08:41 Feosol - PO 325 mg BIDWM ALIVIA Administration Methylergonovine Maleate 0.2 mg 06/30/17 10:41 Methergine Injection - IM Q4H PRN EXCESSIVE BLEEDING (L&D) Multivit/Folic Acid/Iron 1 tab 07/01/17 10:00 07/01/17 09:25 Vitamins (Sjr) - PO 1 tab DAILY ALIVIA Administration Senna/Docusate Sodium 2 tablet 07/01/17 22:00 Pericolace - PO HS PRN CONSTIPATION Tetrahydrozoline HCl 1 drop 06/30/17 10:00 07/01/17 09:26 Visine - OU 1 drop QID ALIVIA Administration Witch [place]lee/Glycerin 1 pad 06/30/17 10:41 Tucks Pads - TP PRN PRN PAIN Objective: Vital Signs Period Temp Pulse Resp BP Sys/Chiang Pulse Ox Last 24 Hr 97.8 F-99.1 F 54-81 20-20 91-111/39-66 Physical Exam: General: NAD, A&Ox3 HEENT: Facial petechia. Reddened sclera No reproducible chest pain on exam CBCD WBC 15.4 K/mm3 (4.0-10.0) H 07/01/17 07:22 RBC 2.76 M/mm3 (3.60-5.2) L 07/01/17 07:22 Hgb 9.2 GM/dL (10.7-15.3) L 07/01/17 07:22 Hct 26.7 % (32.4-45.2) L 07/01/17 07:22 MCV 96.5 fl (80-96) H 07/01/17 07:22 MCHC 34.4 g/dl (32.0-36.0) 07/01/17 07:22 RDW 13.0 % (11.6-15.6) 07/01/17 07:22 Plt Count 97 K/MM3 (134-434) L 07/01/17 07:22 MPV 10.6 fl (7.5-11.1) D 07/01/17 07:22 CMP Sodium 142 mmol/L (136-145) 06/30/17 05:10 Potassium 3.9 mmol/L (3.5-5.1) 06/30/17 05:10 Chloride 110 mmol/L (98-107) H 06/30/17 05:10 Carbon Dioxide 24 mmol/L (21-32) 06/30/17 05:10 Anion Gap 8 (8-16) 06/30/17 05:10 BUN 11 mg/dL (7-18) 06/30/17 05:10 Creatinine 0.7 mg/dL (0.55-1.02) 06/30/17 05:10 Creat Clearance w eGFR > 60 (>60) 06/30/17 05:10 Random Glucose 90 mg/dL (74-106) 06/30/17 05:10 Calcium 8.2 mg/dL (8.5-10.1) L 06/30/17 05:10 Total Bilirubin < 0.1 mg/dL (0.2-1.0) L 06/30/17 05:10 AST 38 U/L (15-37) H 06/30/17 05:10 ALT 20 U/L (12-78) 06/30/17 05:10 Alkaline Phosphatase 134 U/L (45-117) H 06/30/17 05:10 Total Protein 4.8 g/dl (6.4-8.2) L 06/30/17 05:10 Albumin 1.9 g/dl (3.4-5.0) L 06/30/17 05:10 CARDIAC ENZYMES Creatine Kinase 167 IU/L (26-192) 07/01/17 09:13 Troponin I < 0.02 ng/ml (0.00-0.05) 07/01/17 09:13 Assessment: This is a 22 year old female with gestational thrombocytopenia who is post- day 2 of vaginal delivery Plan: 1) Chest pain - Resolved - Trop x3 negative - EKG sinus bradycardia 2) Thrombocytopenia - Recommend hematology consult - Discussed bleeding precautions with the patient 3) Post day 2 - Plan per obstetrics Thank you for this consultative opportunity Visit type - Emergency Visit Emergency Visit: Yes ED Registration Date: 06/27/17 Care time: The patient presented to the Emergency Department on the above date and was hospitalized for further evaluation of their emergent condition. - New Patient This patient is new to me today: Yes Date on this admission: 07/01/17 - Critical Care Critical Care patient: No
[2017-07-01] MEDS ORDERED: SENNOSIDES/DOCUSATE COMBO (SENNA PLUS) TABLET (UD) PO PRN (22:00)
--- NOTE | 2017-07-04 15:35 | PATH ---
Surgical Pathology Report Patient Name: RACHNA GIRARD Med. Rec. #: [id number] /Age/Gender: 1995 (Age: 22) / F Account: [id number] Location: [facility] OBS/DOSIMETRIST Taken: 06/29/2017 Received: 06/30/2017 Reported: 07/04/2017 Physicians: Analilia Kulkarni M.D. Specimen(s) Received PLACENTA Clinical History Vaginal delivery, thrombocytopenia-platelets transfused Final Diagnosis PLACENTA, DELIVERY: SMALL (360 GRAM) FOCALLY DISRUPTED THIRD TRIMESTER PLACENTA WITH CIRCUMMARGINATE INSERTION OF MEMBRANES AND THREE-VESSEL UMBILICAL CORD. Electronically Signed Faisal Baxter M.D. Gross Description The specimen is received fresh labeled placenta and is a 360 gram, 16 x 16 x 2.5 cm. placenta with attached membranes and umbilical cord. The attached membranes are glistening and translucent and insert in a circummarginate matter cross approximately half the placental disc, up to 1 cm from the nearest placental margin. The umbilical cord measures 23 cm. in length and averages 1 cm. in diameter. The cord inserts eccentrically, 6 cm. to the nearest margin. No true knots or strictures are identified. Cut surface of the umbilical cord reveals 3 vessels. The surface is leavitt-blue with minimal fibrin deposition and appropriate caliber vessels. The maternal surface is red-brown with focal defects. Sectioning reveals red-brown, spongy parenchyma. No lesions are identified. Orthodontist Assistant sections are submitted in three cassettes as follows: 1- membrane rolls and umbilical cord; 2-3- full thickness sections of placenta. [facility]/06/30/2017 [facility]/06/30/2017
== END 2017-07-01 13:35 | disposition home or self-care (01) | DRG 560 ==
LOC: JLDR 07:30 → UNDODISIN 06-28 17:20 → J3W 06-29 04:19
PROVIDERS: ADMIT Obstetrics & Gynecology; ATTEND Obstetrics & Gynecology
PROC: 3E0P7VZ Introduction of Hormone into Female Reproductive, Via Natural or Artificial Opening (ICD-10-PCS; 2017-06-27)
PROC: 30233R1 Transfusion of Nonautologous Platelets into Peripheral Vein, Percutaneous Approach (ICD-10-PCS; 2017-06-28)
PROC: 0W8NXZZ Division of Female Perineum, External Approach (ICD-10-PCS; principal; 2017-06-29)
PROC: 10E0XZZ Delivery of Products of Conception, External Approach (ICD-10-PCS; 2017-06-29)
DX: O99.113 Other diseases of the blood and blood-forming organs and certain disorders involving the immune mechanism complicating pregnancy, third trimester (principal); Z3A.39 39 weeks gestation of pregnancy; O26.893 Other specified pregnancy related conditions, third trimester; D72.829 Elevated white blood cell count, unspecified; R07.9 Chest pain, unspecified; D69.6 Thrombocytopenia, unspecified; Z37.0 Single live birth
CPT/HCPCS: 36415; 36430; 59409; 71045-TC-FY; 80053; 81003; 81015; 82550; 82553; 82803; 84484; 84550; 85025; 85610; 85730; 86593; 86850; 86900; 86901; 87040; 87086; 88307-TC; 93005; 93010; 94010; P9034

== ENCOUNTER 2017-07-04 06:08 | Emergency (ER) | payer OTHER ==
[2017-07-04 06:15] VITALS: BMI 26.5
--- NOTE | 2017-07-04 06:17 | PDOC ---
Attending Attestation - Resident Resident Name: Balwinder Novoa - ED Attending Attestation I have performed the following: I have examined & evaluated the patient, The case was reviewed & discussed with the resident, I agree w/resident's findings & plan, Exceptions are as noted - HPI HPI: 07/04/17 06:16 Ms William Brownlee presents to the ER with a complaint of shortness of breath and chest pain She is a , gestational period complicated by gestational thrombocytopenia requiring induction of labor She is now post day #5 s/p vaginal delivery Pt presents to day with a complaint of chest pain Pt actually reported chest pain on post day #2 She was seen by the Hospitalist service. Troponins negative x 2 Pt states her symptoms resolved She notes that her chest pain returned today Associated with shortness of breath No fevers or chills She denies any calf pain, no heavy vaginal bleeding, no dizziness when laying in the bed, no gum bleeding. 07/04/17 06:19 07/04/17 06:20 - Physicial Exam PE: 07/04/17 06:25 GENERAL: The patient is in no acute distress. HEAD: Normal EYES: PERRLA, EOMI, sclera anicteric, conjunctiva clear. ENT: Ears normal, nares patent, oropharynx clear without exudates. Moist mucous membranes. NECK: Normal range of motion, supple without lymphadenopathy, JVD, or masses. LUNGS: Breath sounds equal, clear to auscultation bilaterally. No wheezes, and no crackles. HEART:Regular rate and rhythm, normal S1 and S2 without murmur, rub or gallop. ABDOMEN: Soft, nontender, normoactive bowel sounds. No guarding, no rebound. No masses palpable. EXTREMITIES: Normal range of motion, no edema. No clubbing or cyanosis. No erythema, or tenderness. NEUROLOGICAL: Cranial nerves II through XII grossly intact. Normal speech. No focal neurological deficits. MUSCULOSKELETAL: Back non-tender to palpation, no CVA tenderness SKIN: Warm, Dry, normal turgor, no rashes or lesions noted. - Medical Decision Making 07/07/17 20:54 This is a 22-year-old female, presenting to the emergency department with chest pain, intermittent shortness of breath which is been present since IMMEDIATELY after delivery. Differential diagnosis is broad and includes: Cardiomyopathy, pulmonary embolism, musculoskeletal pain Labs CT ordered EKG Reassess Pt signed out to Marce Osuna Clinical impression: chest pain, initial presentation
--- NOTE | 2017-07-04 06:27 | PDOC ---
History of Present Illness - General Chief Complaint: Shortness of Breath Stated Complaint: DIFFICULTY BREATHING,PAIN RT ARM Time Seen by Provider: 07/04/17 06:13 History Source: Patient Exam Limitations: No Limitations - History of Present Illness Initial Comments: 07/04/17 06:23 The patient is a 22F with no PMH delivered on 06/29 who presents to the ER with chest pain and SOB. The patient states that after she delivered her baby she began to develop SOB which resolved until 1500 yesterday. Since then she's had intermittent SOB, with pleuritic CP every time she takes a deep breath. She also admits to chest pressure which is retrosternal, intermittent, and nonradiating. The patient denies any fever, chills, nausea, vomiting, vaginal bleeding. Past History - Past Medical History Allergies/Adverse Reactions: Allergies Allergy/AdvReac Type Severity Reaction Status Date / Time No Known Allergies Allergy Verified 07/04/17 06:13 Home Medications: Ambulatory Orders NK [No Known Home Medication] 07/04/17 Asthma: No Cancer: No Cardiac Disorders: No Diabetes: No HTN: No Seizures: No Thyroid Disease: No - Suicide/Smoking/Psychosocial Hx Smoking History: Never smoked Have you smoked in the past 12 months: No Information on smoking cessation initiated: No Hx Alcohol Use: No Drug/Substance Use Hx: No Substance Use Type: None Hx Substance Use Treatment: No Review of Systems - Review of Systems Able to Perform ROS?: Yes Comments:: 07/04/17 06:25 GENERAL/CONSTITUTIONAL: No fever or chills. No weakness. HEAD, EYES, EARS, NOSE AND THROAT: No change in vision. No ear pain or discharge. No sore throat. CARDIOVASCULAR: Positive for chest pressure. No chest pain, palpitations, or lightheadedness. RESPIRATORY: Positive for shortness of breath. No cough, wheezing, or hemoptysis. GASTROINTESTINAL: No nausea, vomiting, diarrhea, constipation, or abdominal pain. GENITOURINARY: No dysuria, frequency, hematuria, or change in urination. MUSCULOSKELETAL: No joint or muscle swelling or pain. No neck or back pain. SKIN: No rash or lesions. NEUROLOGIC: No headache, numbness, tingling, weakness, loss of consciousness, or change in strength/sensation. ENDOCRINE: No increased thirst. No abnormal weight change. HEMATOLOGIC/LYMPHATIC: No anemia, easy bleeding, or history of blood clots. ALLERGIC/IMMUNOLOGIC: No hives or skin allergy. Is the patient limited Sinhala proficient: No *Physical Exam - Vital Signs Last Vital Signs Temp Pulse Resp BP Pulse Ox 98.6 F 72 18 106/70 98 07/04/17 06:13 07/04/17 06:13 07/04/17 06:13 07/04/17 06:13 07/04/17 06:13 - Physical Exam Comments: 07/04/17 06:25 GENERAL: Well developed, well nourished. Awake and alert. No acute distress. HEENT: Normocephalic, atraumatic. Hearing grossly normal. Moist mucous membranes. PERRLA, EOMI. No conjunctival pallor. Sclera are non-icteric. NECK: Supple. Full ROM. No JVD. CARDIOVASCULAR: Regular rate and rhythm. No murmurs, rubs, or gallops. Tenderness to palpation over sternum. PULMONARY: No evidence of respiratory distress. Lungs clear to auscultation bilaterally. No wheezing, rales or rhonchi. ABDOMINAL: Soft. Non-tender. Non-distended. No rebound or guarding. GENITOURINARY: No CVA tenderness bilaterally. MUSCULOSKELETAL: Normal range of motion at all joints. No bony deformities or tenderness. EXTREMITIES: No cyanosis. No clubbing. No edema. No calf tenderness. SKIN: Warm and dry. Normal capillary refill. No rashes. No jaundice. NEUROLOGICAL: Alert, awake, appropriate. Cranial nerves 2-12 intact. Normal speech. Gait is normal without ataxia. PSYCHIATRIC: Cooperative. Good eye contact. Appropriate mood and affect. ED Treatment Course - LABORATORY CBC & Chemistry Diagram: 07/04/17 06:30 07/04/17 06:30 - RADIOLOGY Radiology Studies Ordered: Category Date Time Status CHEST CTA [CT] Stat CT Scan 07/04/17 06:21 Ordered Medical Decision Making - Medical Decision Making 07/04/17 06:26 The patient is a 22F with no PMH delivered 5 days ago who presents with pleuritic CP. She was worked up in our hospital with 2 negative troponins but with her recent delivery and worsening pleuritic CP, I am concerned for a PE. Will r/o with CTA chest. D/t her hx of thrombocytopenia, will send basic labs and reassess. Pending EKG, labs, and imaging. 07/04/17 07:03 Pt signed out to darshan Todd team. *DC/Admit/Observation/Transfer Diagnosis at time of Disposition: Chest pain - Discharge Dispostion Disposition: HOME Condition at time of disposition: Good - Referrals Referrals: Jason Prasad MD [Staff Physician] - Nadine Lake MD [Primary Care Provider] - - Patient Instructions Printed Discharge Instructions: DI for Atypical Chest Pain Additional Instructions: You were evaluated today for chest pain. All of your labs and imaging showed no concerning findings including a radiological scan of your lungs which showed no blood clot. A referral to a binding nicker has been provided in your discharge instructions. Please make a follow-up appointment in the next 48 hours. Please pump and dispose of your milk for 24 hours before resuming breast feeding. Return to the Emergency Department for any new/worsening/concerning symptoms. - Post Discharge Activity
--- NOTE | 2017-07-04 07:06 | PDOC ---
*Physical Exam - Vital Signs Last Vital Signs Temp Pulse Resp BP Pulse Ox 98.6 F 72 18 106/70 98 07/04/17 06:13 07/04/17 06:13 07/04/17 06:13 07/04/17 06:13 07/04/17 06:13 - Physical Exam General Appearance: Yes: Nourished, Appropriately Dressed HEENT: positive: Other (B/L scleral icterus) Neck: positive: Trachea midline, Supple Respiratory/Chest: positive: Lungs Clear Cardiovascular: positive: S1, S2. negative: Edema, JVD Gastrointestinal/Abdominal: positive: Normal Bowel Sounds, Soft Extremity: positive: Normal Capillary Refill, Normal Inspection Integumentary: positive: Normal Color, Dry, Warm Neurologic: positive: Fully Oriented, Alert ED Treatment Course - LABORATORY CBC & Chemistry Diagram: 07/04/17 06:30 07/04/17 06:30 Medical Decision Making - Medical Decision Making 07/04/17 07:03 Patient signed out by Dr. Novoa (Resident) and Dr. Oreilly (Attending) 22 year old female with PMH of thrombocytopenia, 5 days pospartum delivery presents with VILLARREAL and chest. Patient currently saturating 99% on RA, other VS unremarkable - chest pain resolved. Awaiting labs, Trop/BNP, CT -- clinical concern for PE. 07/04/17 07:11 ECG shows HR 60, NSR, no deviations, normal intervals, no HUMBERTO/STD, no TWI - non ischemic EKG 07/04/17 07:32 Platelets 179 (97 on 07/01); Leukocytosis 13.3 -- likely 2/2 elevation; patient @ CT. 07/04/17 09:06 Patient resting comfortably, no current c/o dyspnea or chest pain. CT pending 07/04/17 10:07 SpO2 96% on RA following 2 minutes of ambulation. Patient notes childhood h/o dyspnea on exertion for which she saw either a pulmnologist or reo asset manager, patient can't recall specific specialty or any specific diagnosis. Patient counseled on importance of outpatient cardiology follow-up. 07/04/17 10:17 Case d/w Dr. Sylvester -- agrees with POC, notes patient has detailed h/o anxiety associated with motherhood. 07/04/17 11:34 At this time patient has been observed for 4 hours with resolution of chest pain , negative Troponin and CTA. Chest pain unlikely related to ACS or PE. Will discharge home with return precautions and referral to cardiology as well as instruction to pump for 24 hours before resuming breast feeding. I discussed the physical exam findings, ancillary test results and final diagnoses with the patient. I answered all of the patient's questions. The patient was satisfied with the care received and felt comfortable with the discharge plan and treatment plan. The patient will return to the Emergency Department with any new, persistent or worsening symptoms. *DC/Admit/Observation/Transfer Diagnosis at time of Disposition: Chest pain - Discharge Dispostion Disposition: HOME Condition at time of disposition: Good Admit: No - Referrals Referrals: Nadine Lake MD [Primary Care Provider] - Jason Prasad MD [Staff Physician] - - Patient Instructions Printed Discharge Instructions: DI for Atypical Chest Pain Additional Instructions: You were evaluated today for chest pain. All of your labs and imaging showed no concerning findings including a radiological scan of your lungs which showed no blood clot. A referral to a reo asset manager has been provided in your discharge instructions. Please make a follow-up appointment in the next 48 hours. Please pump and dispose of your milk for 24 hours before resuming breast feeding. Return to the Emergency Department for any new/worsening/concerning symptoms. - Post Discharge Activity
[2017-07-04 07:10] LABS: BASO % 0.2 % (0-2.0); HEMATOCRIT 25.4 % (32.4-45.2); HEMOGLOBIN 8.9 GM/dL (10.7-15.3); LYMPH % 11.9 % (8-40); MCH 33.5 pg (25.7-33.7); MCHC 34.9 g/dl (32.0-36.0); MEAN PLT VOLUME 9.5 fl (7.5-11.1); MONO % 6.2 % (3.8-10.2); NEUT % 79.7 % (42.8-82.8); PLATELET COUNT 179 K/MM3 (134-434); RBC 2.64 M/mm3 (3.60-5.2); RDW 13.1 % (11.6-15.6); WHITE BLOOD COUNT 13.3 K/mm3 (4.0-10.0)
[2017-07-04 07:34] LABS: INR 0.84 (0.82-1.09); PROTHROMBIN TIME (PATIENT) 9.5 SEC (9.98-11.88)
[2017-07-04 07:36] LABS: ACTIVATED PTT 25.7 SECONDS (26.9-34.4)
[2017-07-04 07:50] LABS: ALBUMIN 2.6 g/dl (3.4-5.0); ALK PHOS 151 U/L (45-117); ANION GAP 6 (8-16); BLOOD UREA NITROGEN 10 mg/dL (7-18); CALCIUM 8.4 mg/dL (8.5-10.1); CHLORIDE 107 mmol/L (98-107); CO2 26 mmol/L (21-32); CREATININE 0.5 mg/dL (0.55-1.02); GLUCOSE,RANDOM 79 mg/dL (74-106); POTASSIUM 3.8 mmol/L (3.5-5.1); SGOT/AST 50 U/L (15-37); SGPT/ALT 45 U/L (12-78); SODIUM 139 mmol/L (136-145); TOT PROT 6.1 g/dl (6.4-8.2)
[2017-07-04 08:03] LABS: BILIRUBIN,TOTAL < 0.1 mg/dL (0.2-1.0)
[2017-07-04 08:19] LABS: N-TERMINAL BNP 50.32 pg/ml (5-125)
--- NOTE | 2017-07-04 10:03 | PDOC ---
*Physical Exam - Vital Signs Last Vital Signs Temp Pulse Resp BP Pulse Ox 98.6 F 72 18 187/104 98 07/04/17 06:13 07/04/17 06:13 07/04/17 06:13 07/04/17 08:45 07/04/17 06:13 - Physical Exam Comments: 07/04/17 10:01 VSS well appearing feels well on trial of ambulation, O2 sat remained normal ED Treatment Course - LABORATORY CBC & Chemistry Diagram: 07/04/17 06:30 07/04/17 06:30 - ADDITIONAL ORDERS Additional order review: Laboratory Results 07/04/17 07/04/17 06:30 06:30 PT with INR 9.50 L INR 0.84 L PTT (Actin FS) 25.7 L Sodium 139 Potassium 3.8 Chloride 107 Carbon Dioxide 26 Anion Gap 6 L BUN 10 Creatinine 0.5 L Creat Clearance w eGFR > 60 Random Glucose 79 Calcium 8.4 L Total Bilirubin < 0.1 L AST 50 H ALT 45 Alkaline Phosphatase 151 H Creatine Kinase 441 H Creatine Kinase Index 1.1 CK-MB (CK-2) 5.061 H Troponin I < 0.02 B-Natriuretic Peptide 50.32 Total Protein 6.1 L Albumin 2.6 L 07/04/17 06:30 RBC 2.64 L MCV 96.0 MCHC 34.9 RDW 13.1 MPV 9.5 D Neutrophils % 79.7 Lymphocytes % 11.9 D Monocytes % 6.2 Eosinophils % 2.0 Basophils % 0.2 Medical Decision Making - Medical Decision Making 07/04/17 10:01 Received signout on this healthy 22-year-old female at 39 weeks gestation who presented with atypical cardiopulmonary symptoms. She was seen during her labor and delivery stay and troponins were negative 3, she presents with persistent symptoms. EKG and troponin are negative here, though CK-MB is slightly elevated. Otherwise well-appearing. Plan at sign out to check CTA chest to rule out PE. CT is negative for PE and notably with normal heart size and no pericardial effusion. Patient remains clinically well-appearing, discussed return precautions, will give cardiology referral. Discussed case with GIS PROGRAMMER, who agree with plan. *DC/Admit/Observation/Transfer - Referrals Referrals: Nadine Lake MD [Primary Care Provider] - - Patient Instructions - Post Discharge Activity
[2017-07-04 10:40] VITALS: BP 123/71; PULSE 71; TEMP 98.3
--- NOTE | 2017-07-04 16:49 | EKG ---
Test Reason : Blood Pressure : / mmHG Vent. Rate : 060 BPM Atrial Rate : 060 BPM P-R Int : 150 ms QRS Dur : 094 ms QT Int : 406 ms P-R-T Axes : 058 070 049 degrees QTc Int : 406 ms NORMAL SINUS RHYTHM WITH SINUS ARRHYTHMIA NORMAL ECG WHEN COMPARED WITH ECG OF 30-JUN-2017 08:19, NO SIGNIFICANT CHANGE WAS FOUND Confirmed by MD Myai, Zane ([id number]) on 07/04/2017 4:49:03 PM Referred By: Confirmed By:Zane See MD
== END 2017-07-04 10:31 | disposition home or self-care (01) ==
LOC: JER 06:08
DX: O90.89 Other complications of the puerperium, not elsewhere classified (principal); R07.89 Other chest pain
CPT/HCPCS: 36415; 71275-TC; 80053; 82550; 82553; 83880; 84484; 85025; 85610; 85730; 93005; 93010; 99284-25

== ENCOUNTER 2019-12-29 22:50 | Inpatient (IN) | payer OTHER ==
[2019-12-29] MEDS ORDERED: ELECTROLYTE-148 SOLN 1,000 ML IV ONE (23:15)
--- OUTSIDE RECORDS SUMMARY | 2019-12-29 23:26 | XMS ---
:[address] [facility] Support Name Relationship Address Phone I SMILE Unavailable [address] [place] [address] PRIYANKA PATEL [address] [place] [address]PRIYANKA ODOM Unavailable [address] [phone] [place] [address] Re-disclosure Warning The records that you are about to access may contain information from federally- assisted alcohol or drug abuse programs. If such information is present, then the following federally mandated warning applies: This information has been disclosed to you from records protected by federal confidentiality rules (42 CFR part 2). The federal rules prohibit you from making any further disclosure of this information unless further disclosure is expressly permitted by the written consent of the person to whom it pertains or as otherwise permitted by 42 CFR part 2. A general authorization for the release of medical or other information is NOT sufficient for this purpose. The Federal rules restrict any use of the information to criminally investigate or prosecute any alcohol or drug abuse patient.The records that you are about to access may contain highly sensitive health information, the redisclosure of which is protected by Article 27-F of the [place] State Public Health law. If you continue you may haveaccess to information: Regarding HIV / AIDS; Provided by facilities licensed or operated by the [facility] Office of Mental Health; or Provided by the [facility] Office for People With Developmental Disabilities. If such information is present, then the following [facility] mandated warning applies: This information has been disclosed to you from confidential records which are protected by state law. State law prohibits you from making any further disclosure of this information without the specific written consent of the person to whom it pertains, or as otherwise permitted by law. Any unauthorized further disclosure in violation of state law may result in a fine or snf sentence or both. A general authorization for the release of medical or other information is NOT sufficient authorization for further disclosure. Insurance Providers Payer name Policy type Policy ID Covered Covered alliance party's Policy P namrata / Coverage alliance party ID relationship to [place] Inf ormation type [place] COUNTS INCLUDE 234 BEDS AT THE [facility] [id number] [address] [place] [address] NON CAP
[2019-12-29] MEDS ORDERED: OXYTOCIN 20 UNITS in 0.9% NS 20 UNIT/1,000 ML INFUS.BAG IV ONE (23:33)
[2019-12-29] MEDS ORDERED: IBUPROFEN 600 MG TABLET (FP) PO ONE (23:57)
[2019-12-29] MEDS ORDERED: ACETAMINOPHEN 325 MG TABLET (FP) ONE (23:58)
[2019-12-30] LABS: BASO % 0.5 % (0-2.0); EOS % 0.5 % (0-4.5); HEMATOCRIT 37.5 % (32.4-45.2); HEMOGLOBIN 12.8 GM/dL (10.7-15.3); LYMPH % 31.2 % (8-40); MCH 32.6 pg (25.7-33.7); MCHC 34.3 g/dl (32.0-36.0); MEAN CELL VOLUME 95.2 fl (80-96); MONO % 5.3 % (3.8-10.2); NEUT % 62.5 % (42.8-82.8); PLATELET COUNT 72 K/MM3 (134-434); RBC 3.93 M/mm3 (3.60-5.2); RDW 13.4 % (11.6-15.6); WHITE BLOOD COUNT 11.7 K/mm3 (4.0-10.0)
[2019-12-30 00:03] LABS: INR 0.85 (0.83-1.09); PROTHROMBIN TIME (PATIENT) 10.1 SEC (9.7-13.0)
[2019-12-30 00:06] LABS: ACTIVATED PTT 27.9 SECONDS (25.2-36.5)
[2019-12-30] MEDS ORDERED: BISACODYL 10 MG SUPP.RECT RC PRN (00:18)
[2019-12-30] MEDS ORDERED: BENZOCAINE 20% 57 GM BOTTLE TP PRN (00:18)
[2019-12-30] MEDS ORDERED: WITCH HAZEL 50% (TUCKS) 40 PAD/JAR PAD TP PRN (00:18)
[2019-12-30] MEDS ORDERED: BENZOCAINE 28 GM HEMORRHOIDAL OINTMENT TP PRN (00:18)
[2019-12-30] MEDS ORDERED: METHYLERGONOVINE MALEATE 0.2 MG/1 ML AMP IM PRN (00:18)
[2019-12-30 00:23] LABS: BLOOD UREA NITROGEN 10.1 mg/dL (7-18); CALCIUM 9.2 mg/dL (8.5-10.1); CREATININE 0.7 mg/dL (0.55-1.3)
--- NOTE | 2019-12-30 00:24 | HP ---
Past Medical History - Primary Care Physician PCP:: Hugh Patiño - Admission Chief Complaint: 39 weeks, labor History of Present Illness: 24 yo f 39 weeks in labor , cx 9cm 100 vx 2+ , fhr cat 1, regular contraction, wants to push History Source: Patient Limitations to Obtaining History: No Limitations - Past Medical History Gastrointestinal: Yes: Constipation. No: Gastritis, GERD ...: 2 ...Para: 1 ...EDC by Dates: 12/31/19 ...EDC by Sono: 12/31/19 Heme/Onc: Yes: Thrombocytopenia (gestational diagnised at 36 weeks). No: Anemia Psych: Yes: Other (no h/o mental disorders) - Past Surgical History Past Surgical History: Yes: None Hx Myomectomy: No Hx Transabdominal Cerclage: No - Smoking History Smoking history: Never smoked Have you smoked in the past 12 months: No - Alcohol/Substance Use Hx Alcohol Use: No History of Substance Use: reports: None - Social History Usual Living Arrangement: Yes: With Spouse History of Recent Travel: No Home Medications - Allergies Allergies/Adverse Reactions: Allergies Allergy/AdvReac Type Severity Reaction Status Date / Time No Known Allergies Allergy Verified 07/04/17 06:13 - Home Medications Home Medications: Ambulatory Orders Pnv No.95/Ferrous Fum/Folic AC [ Caplet] 1 tab PO DAILY 12/30/19 Review of Systems - Review of Systems Constitutional: reports: No Symptoms Eyes: reports: No Symptoms HENT: reports: No Symptoms Neck: reports: No Symptoms Cardiovascular: reports: No Symptoms Respiratory: reports: No Symptoms Gastrointestinal: reports: No Symptoms Genitourinary: reports: No Symptoms Breasts: reports: No Symptoms Reported Musculoskeletal: reports: No Symptoms Integumentary: reports: No Symptoms Neurological: reports: No Symptoms Endocrine: reports: No Symptoms Hematology/Lymphatic: reports: No Symptoms Psychiatric: reports: No Symptoms Physical Exam - Maternity Constitutional: Yes: Well Nourished, No Distress, Calm Eyes: Yes: WNL, Conjunctiva Clear, EOM Intact HENT: Yes: WNL, Atraumatic, Normocephalic Neck: Yes: WNL, Supple, Trachea Midline Cardiovascular: Yes: WNL, Regular Rate and Rhythm Breast(s): Yes: WNL - Abdominal Exam/OB Fundal Height: 38 Number of Fetuses: Single Presentation: Vertex Contractions: Yes Regularity: Regular Intensity: Mod/Strong Monitor Mode: External Heart Rate Location: [facility] Category: I Accelerations: Non-Uniform Decelerations: None - Vaginal Exam/OB Vaginal Bleeding: No Speculum Exam: No Dilatation (cm): 8 Effacement (%): 100 Amniotic Membrane Status: Intact Presentation: Vertex/Position Station: +2 - Physical Exam Musculoskeletal: Yes: WNL Extremities: Yes: WNL Edema: LLE: Trace, RLE: Trace Psychiatric: Yes: WNL - Labs Lab Results: CBC, BMP 12/29/19 23:30 Hemorrhage Risk Assessment - Risk Factors Medium Risk Factors: Yes: None High Risk Factors: Yes: None Risk Score: 1 Risk Level: Medium Risk Problem List - Problems (1) with 39 completed weeks gestation Code(s): Z3A.39 - 39 WEEKS GESTATION OF (2) Labor established Code(s): YAE9610 - Assessment/Plan admit for vaginal delivery COUNT INCLUDES THE [facility]
--- NOTE | 2019-12-30 00:25 | PN ---
Delivery - Delivery Vaginal Delivery: Spontaneous Type of Anesthesia: Local Episiotomy/Laceration: Midline EBL (cc): 300
[2019-12-30] MEDS ORDERED: OXYTOCIN 20 UNITS in 0.9% NS 20 UNIT/1,000 ML INFUS.BAG IV SCH (00:30)
[2019-12-30 01:24] VITALS: BMI 24.7
[2019-12-30 01:24] LABS: CORD BASE EXCESS -7.1 mmol/L (0-2); CORD HCO3 17.9 mmHg (20-29); CORD PCO2 35.2 mmHg (30-78); CORD pH 7.324 (7.14-7.44)
[2019-12-30 01:27] LABS: CORD BASE EXCESS -6.7 mmol/L (0-2); CORD HCO3 21.3 mmHg (20-29); CORD pH 7.231 (7.14-7.44)
[2019-12-30] MEDS: IBUPROFEN 600 MG TABLET (FP) PO PRN ×4 (05:12→23:03)
[2019-12-30] MEDS: ACETAMINOPHEN 325 MG TABLET (FP) PO PRN ×4 (05:12→23:02)
[2019-12-30] MEDS: FERROUS SO4 325 MG TABLET (FP) PO SCH ×2 (10:03→21:43)
[2019-12-30] MEDS: PRENATAL VITAMINS W/ FOLIC ACID TABLET (FP) PO SCH (10:03)
--- NOTE | 2019-12-30 12:07 | DS ---
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: Vital Signs Temperature 99 F 12/30/19 06:00 Pulse Rate 56 L 12/30/19 06:00 Respiratory Rate 18 12/30/19 06:00 Blood Pressure 90/46 L 12/30/19 06:00 O2 Sat by Pulse Oximetry (%) 100 12/30/19 01:05 Constitutional: Yes: Well Nourished, No Distress, Calm Eyes: Yes: WNL, Conjunctiva Clear, EOM Intact HENT: Yes: WNL, Atraumatic, Normocephalic Neck: Yes: WNL, Supple, Trachea Midline Cardiovascular: Yes: WNL, Regular Rate and Rhythm Respiratory: Yes: WNL, Regular, CTA Bilaterally Gastrointestinal: Yes: WNL ...Rectal Exam: Yes: WNL Renal/: Yes: WNL ....Post : Yes: Uterus firm, Uterus non-tender, Slight lochia rubra Breast(s): Yes: WNL Musculoskeletal: Yes: WNL Extremities: Yes: WNL Edema: No Integumentary: Yes: WNL Neurological: Yes: WNL, Alert, Oriented ...Motor Strength: WNL Psychiatric: Yes: WNL, Alert, Oriented Labs: CBC, BMP 12/29/19 23:30 12/29/19 23:30 Delivery - Delivery Vaginal Delivery: Spontaneous (cx full head on pernium. 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 - 1 Minute Total Score: 9 5 Minutes Total Score: 9 - Feeding Plan Initial Plan: Elected not to breastfeed exclusively throughout hospitalization Discharge Summary Problems reviewed: Yes Reason For Visit: LABOR ADMIT Current Active Problems Labor established (Acute) with 39 completed weeks gestation (Acute) Procedures: Principal: Hospital Course: no complication - Instructions Referrals: Rasheed Kebede MD [Primary Care Provider] - - Home Medications Comprehensive Discharge Medication List: Ambulatory Orders Pnv No.95/Ferrous Fum/Folic AC [ Caplet] 1 tab PO DAILY 12/30/19
--- NOTE | 2019-12-31 08:01 | PN ---
Post Progress Note - Subjective Subjective: Ambulating, breast feeding, tolerating PO, lochia decreasing, voiding. Delivery at midnight Post Day: 1 Type of Delivery: Vital Signs: Vital Signs Temperature 98.6 F 12/30/19 22:00 Pulse Rate 57 L 12/30/19 22:00 Respiratory Rate 18 12/30/19 22:00 Blood Pressure 108/60 12/30/19 22:00 O2 Sat by Pulse Oximetry (%) 96 12/30/19 22:00 Breast Exam: Yes: Other Uterus: Yes: Fundus Firm Incision: Yes: Other Abdomen/GI: Yes: Abdomen soft Lochia, amount: Moderate Extremities: Yes: Calves non-tender Perineum: Yes: Intact Activity: Ambulating - Labs Labs: CBC WBC 11.7 K/mm3 (4.0-10.0) H 12/29/19 23:30 RBC 3.93 M/mm3 (3.60-5.2) 12/29/19 23:30 Hgb 12.8 GM/dL (10.7-15.3) 12/29/19 23:30 Hct 37.5 % (32.4-45.2) D 12/29/19 23:30 MCV 95.2 fl (80-96) 12/29/19 23:30 MCH 32.6 pg (25.7-33.7) 12/29/19 23:30 MCHC 34.3 g/dl (32.0-36.0) 12/29/19 23:30 RDW 13.4 % (11.6-15.6) 12/29/19 23:30 Plt Count 72 K/MM3 (134-434) L D 12/29/19 23:30 MPV 12.0 fl (7.5-11.1) H D 12/29/19 23:30 Absolute Neuts (auto) 7.3 K/mm3 (1.5-8.0) 12/29/19 23:30 Neutrophils % 62.5 % (42.8-82.8) D 12/29/19 23:30 Lymphocytes % 31.2 % (8-40) D 12/29/19 23:30 Monocytes % 5.3 % (3.8-10.2) 12/29/19 23:30 Eosinophils % 0.5 % (0-4.5) 12/29/19 23:30 Basophils % 0.5 % (0-2.0) 12/29/19 23:30 Nucleated RBC % 0 % (0-0) 12/29/19 23:30 Assessment/Plan 24 y/o on PPD # 1 S/P VD in stable condition. Pronounced thrombocytopenia, BP WNL and no evidence of [employer] SUBAGENT irritability -AM labs -Continue PP care -Anticipate D/C home tomorrow
[2019-12-31 08:09] LABS: BASO % 0.3 % (0-2.0); EOS % 1.9 % (0-4.5); HEMATOCRIT 30.1 % (32.4-45.2); HEMOGLOBIN 10.5 GM/dL (10.7-15.3); LYMPH % 30.2 % (8-40); MCH 34.1 pg (25.7-33.7); MCHC 34.9 g/dl (32.0-36.0); MEAN CELL VOLUME 97.5 fl (80-96); MEAN PLT VOLUME 12.7 fl (7.5-11.1); MONO % 5.9 % (3.8-10.2); NEUT % 61.7 % (42.8-82.8); PLATELET COUNT 65 K/MM3 (134-434); RBC 3.09 M/mm3 (3.60-5.2); RDW 13.5 % (11.6-15.6); WHITE BLOOD COUNT 10.3 K/mm3 (4.0-10.0)
[2019-12-31] MEDS: FERROUS SO4 325 MG TABLET (FP) PO SCH ×2 (09:33→21:29)
[2019-12-31] MEDS: PRENATAL VITAMINS W/ FOLIC ACID TABLET (FP) PO SCH (09:33)
[2019-12-31] MEDS: IBUPROFEN 600 MG TABLET (FP) PO PRN ×2 (09:53→19:38)
[2019-12-31] MEDS: ACETAMINOPHEN 325 MG TABLET (FP) PO PRN ×2 (09:54→19:38)
[2019-12-31 10:40] LABS: ALBUMIN 2.4 g/dl (3.4-5.0); BILIRUBIN,TOTAL 0.2 mg/dL (0.2-1); BLOOD UREA NITROGEN 9.3 mg/dL (7-18); CALCIUM 8.5 mg/dL (8.5-10.1); CREATININE 0.6 mg/dL (0.55-1.3); POTASSIUM 4.2 mmol/L (3.5-5.1); TOT PROT 5.6 g/dl (6.4-8.2)
[2019-12-31] MEDS ORDERED: SENNOSIDES/DOCUSATE COMBO (SENNA PLUS) TABLET (UD) PO PRN (22:00)
[2020-01-01 08:13] LABS: BASO % 0.5 % (0-2.0); HEMATOCRIT 31.2 % (32.4-45.2); HEMOGLOBIN 10.8 GM/dL (10.7-15.3); LYMPH % 19.6 % (8-40); MCH 33.8 pg (25.7-33.7); MCHC 34.7 g/dl (32.0-36.0); MEAN CELL VOLUME 97.4 fl (80-96); MONO % 5.3 % (3.8-10.2); NEUT % 72.6 % (42.8-82.8); PLATELET COUNT 82 K/MM3 (134-434); RBC 3.21 M/mm3 (3.60-5.2); RDW 13.8 % (11.6-15.6); WHITE BLOOD COUNT 11.6 K/mm3 (4.0-10.0)
--- NOTE | 2020-01-01 08:20 | PN ---
Post Progress Note Post Day: 2 Type of Delivery: Vital Signs: Vital Signs Temperature 98.2 F 12/31/19 22:00 Pulse Rate 61 12/31/19 22:00 Respiratory Rate 18 12/31/19 22:00 Blood Pressure 106/65 12/31/19 22:00 O2 Sat by Pulse Oximetry (%) 96 12/30/19 22:00 Breast Exam: Yes: Soft, Other (BF ). No: Engorged Uterus: Yes: Fundus Firm, Fundus below umbilicus, Non-tender Abdomen/GI: Yes: Abdomen soft Lochia: Yes: Rubra, Serosa Lochia, amount: Small Extremities: Yes: Calves non-tender Perineum: Yes: Intact Activity: Ambulating - Labs Labs: CBC WBC 10.3 K/mm3 (4.0-10.0) H 12/31/19 07:35 RBC 3.09 M/mm3 (3.60-5.2) L 12/31/19 07:35 Hgb 10.5 GM/dL (10.7-15.3) L 12/31/19 07:35 Hct 30.1 % (32.4-45.2) L D 12/31/19 07:35 MCV 97.5 fl (80-96) H 12/31/19 07:35 MCH 34.1 pg (25.7-33.7) H 12/31/19 07:35 MCHC 34.9 g/dl (32.0-36.0) 12/31/19 07:35 RDW 13.5 % (11.6-15.6) 12/31/19 07:35 Plt Count 65 K/MM3 (134-434) L 12/31/19 07:35 MPV 12.7 fl (7.5-11.1) H 12/31/19 07:35 Absolute Neuts (auto) 6.4 K/mm3 (1.5-8.0) 12/31/19 07:35 Neutrophils % 61.7 % (42.8-82.8) 12/31/19 07:35 Lymphocytes % 30.2 % (8-40) 12/31/19 07:35 Monocytes % 5.9 % (3.8-10.2) 12/31/19 07:35 Eosinophils % 1.9 % (0-4.5) D 12/31/19 07:35 Basophils % 0.3 % (0-2.0) 12/31/19 07:35 Nucleated RBC % 0 % (0-0) 12/31/19 07:35 Problem List - Problems (1) Encounter for care after planned out of hospital delivery Code(s): Z39.2 - ENCOUNTER FOR ROUTINE FOLLOW-UP Assessment/Plan ppd #2 stable plt 65, prepartum 72 pt stable today plt pending will discharge today pt will follow with her pcp for plt
[2020-01-01 09:16] VITALS: BP 114/73; PULSE 95; TEMP 98.1
[2020-01-01] MEDS: FERROUS SO4 325 MG TABLET (FP) PO SCH (09:19)
[2020-01-01] MEDS: PRENATAL VITAMINS W/ FOLIC ACID TABLET (FP) PO SCH (09:19)
[2020-01-01] MEDS: IBUPROFEN 600 MG TABLET (FP) PO PRN (09:23)
[2020-01-01] MEDS: ACETAMINOPHEN 325 MG TABLET (FP) PO PRN (09:24)
== END 2020-01-01 13:30 | disposition home or self-care (01) | DRG 560 ==
LOC: JLDR 22:50 → J3W 12-30 02:20
PROVIDERS: ADMIT Obstetrics & Gynecology; ATTEND Obstetrics & Gynecology
PROC: 10E0XZZ Delivery of Products of Conception, External Approach (ICD-10-PCS; principal; 2019-12-30)
PROC: 0W8NXZZ Division of Female Perineum, External Approach (ICD-10-PCS; 2019-12-30)
DX: O99.12 Other diseases of the blood and blood-forming organs and certain disorders involving the immune mechanism complicating childbirth (principal); D69.6 Thrombocytopenia, unspecified; O70.9 Perineal laceration during delivery, unspecified; Z3A.39 39 weeks gestation of pregnancy; Z37.0 Single live birth
CPT/HCPCS: 36415; 36600; 59409; 80048; 80053; 82803; 85025; 85610; 85730; 86780; 86850; 86900; 86901; 87389; C9803; U0003

== ENCOUNTER 2022-06-13 23:43 | Emergency (ER) | payer OTHER ==
[2022-06-13 23:57] VITALS: BP 101/64; PULSE 58; RESP 16; TEMP 98.4; BMI 20.6
[2022-06-14] MEDS ORDERED: IBUPROFEN 600 MG TABLET (FP) PO ONE ×2 (01:09→01:13)
[2022-06-14] MEDS ORDERED: ACETAMINOPHEN 500 MG TABLET (FP) PO ONE (01:09)
[2022-06-14] MEDS ORDERED: LIDOCAINE 5% TOPICAL PATCH TP ONE (01:09)
[2022-06-14] MEDS ORDERED: ACETAMINOPHEN 325 MG TABLET (FP) ONE (01:13)
[2022-06-14] MEDS ORDERED: LIDOCAINE 5% TOPICAL PATCH ONE (01:13)
[2022-06-14] MEDS ORDERED: LIDOCAINE PATCH REMOVAL MC SCH (22:00)
== END 2022-06-14 02:50 | disposition home or self-care (01) ==
LOC: JER 23:43
DX: M54.50 Low back pain, unspecified (principal); M54.6 Pain in thoracic spine
CPT/HCPCS: 71046-TC-FY; 99283-25